=== PATIENT | male | born 1985 | race Caucasian/White ===

== ENCOUNTER 2019-02-02 01:44 | Emergency (ER) | payer OTHER, SELFPAY ==
[2019-02-02 01:51] VITALS: BP 132/82; PULSE 72; RESP 16; TEMP 36.5; O2SAT 99; BMI 23.5
--- NOTE | 2019-02-02 01:58 | ED_ITS ---
HPI - Eye Problem General Chief complaint: Eye Problems Stated complaint: left eye pain Time Seen by Provider: 02/02/19 01:50 Source: patient Mode of arrival: ambulatory Limitations: no limitations History of Present Illness HPI Narrative: Patient is a 33-year-old male here for evaluation of a swelling to his left upper eyelid. He has never had any eye issues in the past. Does not see his primary doctor for this. Has been doing ?compresses. No vision changes. Does not wear glasses or contacts. States it has been there for the past several months. He states that it has gotten larger and smaller in that p eriod of time. He is scheduled to see a primary doctor but will not be until March. Has not done anything for symptoms prior to arrival. Patient also states that he has a long history of back pain and is asking for a Toradol shot. Related Data Home Medications Medication Instructions Recorded Confirmed CARBAMAZEPINE 200 mg PO TID #0 05/03/10 CEFUROXIME AXETIL (Ceftin) 500 mg PO BID #0 05/03/10 Allergies Allergy/AdvReac Type Severity Reaction Status Date / Time codeine Allergy Verified 02/02/19 01:51 hydrocodone Allergy Verified 02/02/19 01:51 Review of Systems Constitutional Denies fever(s) and Denies headache(s) Eyes Comments: Swelling to left upper eyelid ENT Ears, Nose, Mouth, and Throat: Denies headache(s) Musculoskeletal Reports back pain Integumentary/Breasts Denies lesions and Denies rash Neurologic Denies behavioral changes and Denies headache(s) Psychiatric Denies behavioral changes Exam Initial Vital Signs Initial Vital Signs: Vital Signs Temperature 97.7 F 02/02/19 01:51 Pulse Rate 72 02/02/19 01:51 Respiratory Rate 16 02/02/19 01:51 Blood Pressure 132/82 02/02/19 01:51 Pulse Oximetry 99 02/02/19 01:51 Const General: cooperative, comfortable, well developed, well groomed and No acute distress Orientation: alert, awake and oriented x3 HENMT Head: normal to inspection and normocephalic Eyes Pupils: PERRL EOM: EOM intact bilaterally Other: Patient with a swelling to the temporal aspect of the left upper eyelid consistent with a stye. No foreign body noted. Skin Lesions: no lesions Rashes: no rashes Neuro General: alert and awake Cognition: normal cognition Speech: speech normal Extrem General: normal to inspection and capillary refill normal Course Vital Signs - 8 hr 02/02/19 01:51 Temperature 97.7 F Pulse Rate 72 Respiratory Rate 16 Blood Pressure 132/82 Pulse Oximetry 99 MDM - Eye Problem MDM Narrative Medical decision making narrative: History and physical exam was consistent with a stye. His back pain is chronic. He was given a shot of Toradol per his request here in the ER. Patient was also complaining of insomnia. Informed him that he needs when to he saw his primary doctor to discuss sleep aids. Hold on further workup for now. Also informed the patient he needed to talk this primary doctor about any referral to see a service unit operator oil well. He expressed understanding and agreement. Discharge Plan Departure Patient Disposition: Home Clinical Impression: Hordeolum externum left upper eyelid Back pain Qualifiers: Back pain location: low back pain Chronicity: chronic Back pain laterality: unspecified Sciatica presence: unspecified whether sciatica present Qualified Code(s): M54.5 - Low back pain Instructions: DI for Hordeolum, Activity May Be Better then Rest for Low Back Pain Recovery Activity Restrictions/Additional Instructions: You can continue with the compresses to your left eye. He can contact health human resources psychologist at [phone] here at the hospital in can help you with establishing your primary provider. Prescriptions: No Action CARBAMAZEPINE 200 mg PO TID Qty: 0 RF: 0 CEFUROXIME AXETIL (Ceftin) 500 mg PO BID Qty: 0 RF: 0
[2019-02-02] MEDS: KETOROLAC 60 MG/2 ML VIAL 30 MG IM (02:06)
== END 2019-02-02 02:20 | disposition home or self-care (01) ==
PROVIDERS: Emergency Provider Emergency Medicine
DX: H00.014 Hordeolum externum left upper eyelid (principal); M54.5 Low back pain
CPT/HCPCS: 96372; 99282; 99283; J1885